=== PATIENT | female | born 1980 | race African-American/Black ===

== ENCOUNTER 2020-11-10 20:22 | Emergency (ER) | payer OTHER, SELFPAY ==
--- NOTE | ~2020-11-10 | XR_ITS ---
EXAMINATION: XR CHEST CLINICAL INFORMATION: Chest pain COMPARISON: None TECHNIQUE: Frontal view of the chest was obtained. FINDINGS: The lungs are well expanded. There is no focal consolidation, edema, or effusion. No pneumothorax. The cardiomediastinal silhouette is within normal limits. No acute osseous abnormality. XR/XR chest 1V IMPRESSION: Clear lungs.
--- NOTE | 2020-11-10 20:23 | ECG_ITS ---
Test Reason : CHEST PAIN Blood Pressure : / mmHG Vent. Rate : 087 BPM Atrial Rate : 087 BPM P-R Int : 158 ms QRS Dur : 092 ms QT Int : 354 ms P-R-T Axes : 000 092 014 degrees QTc Int : 425 ms Normal sinus rhythm Rightward axis Borderline ECG No previous ECGs available Referred By: Generic ED Physician Electronically Signed By:ELIZABETH TAVAREZ
[2020-11-10 20:33] VITALS: BP 147/90; PULSE 98; RESP 16; TEMP 36.6; O2SAT 97; BMI 34.7
--- NOTE | 2020-11-10 22:31 | PC.NURSE ---
Lab work attempted by two ED techs not success. 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
--- NOTE | 2020-11-10 22:40 | PC.NURSE ---
Patient reports she wants to leave. This RN explains the risks of leaving and encourages patient to stay and reminds patient they can come back at any time.
== END 2020-11-11 00:47 | disposition left against medical advice (07) ==
PROVIDERS: Emergency Provider Emergency Medicine
DX: R07.9 Chest pain, unspecified (principal); R06.02 Shortness of breath
CPT/HCPCS: 71045; 93005; 99283; 99284